=== PATIENT | female | born 1960 | race Native Hawaiian/Other Pacific Islander ===

== ENCOUNTER 2019-08-10 11:35 | Outpatient (CLI) | payer OTHER | END 2019-08-10 22:23 | disposition home or self-care (01) | LOC: RAD 11:35 | DX: J20.9 Acute bronchitis, unspecified (principal) ==

== ENCOUNTER 2019-09-22 10:47 | Outpatient (CLI) | payer OTHER | END 2019-09-22 19:21 | disposition home or self-care (01) | LOC: CT 10:47 | DX: F17.200 Nicotine dependence, unspecified, uncomplicated (principal) | CPT/HCPCS: G0297-TC ==